=== PATIENT | male | born 1980 | race Caucasian/White ===

== ENCOUNTER 2024-08-12 18:10 | Emergency (ER) | payer OTHER ==
[~2024-08-12] VITALS: Ht 170.2 cm; Wt 73.0 kg
[2024-08-12 18:17] VITALS: BP 0/0; RESP 0
== END 2024-08-12 20:15 ==
LOC: ER 18:10
DX: S01.81XA Laceration without foreign body of other part of head, initial encounter (principal); Z02.89 Encounter for other administrative examinations; X58.XXXA Exposure to other specified factors, initial encounter; Y93.89 Activity, other specified; Y92.89 Other specified places as the place of occurrence of the external cause; Y99.8 Other external cause status
CPT/HCPCS: 99283